=== PATIENT | female | born 1965 | race American Indian/Alaskan Native ===

== ENCOUNTER 2019-03-25 15:56 | Emergency (ER) | payer MEDICARE, OTHER ==
[2019-03-25] MEDS ORDERED: Sodium Chloride 0.9% 10 ML Syringe FLUSH PRN (16:23)
[2019-03-25] MEDS ORDERED: Sodium Chloride 0.9% 1,000 ML IV ONE (16:23)
[2019-03-25] MEDS ORDERED: Ketorolac 30 MG/ML SDV IVPUSH ONE (16:23)
[2019-03-25 16:57] LABS: ANION GAP 15.9
[2019-03-25] MEDS ORDERED: Butorphanol 2 MG/ML SDV IVPUSH ONE (17:26)
--- NOTE | 2019-03-25 17:52 | EDM.PDOC ---
Scribed by Becca Peña 03/25/19 [id number] for Maribel Calles NP ED HPI GENERAL MEDICAL PROBLEM - General Chief Complaint: Head Injury Stated Complaint: MIGRAINE +7 DAYS, BONE PAIN IN NECK Time Seen by Provider: 03/25/19 16:10 Source of Information: Reports: Patient, RN, RN Notes Reviewed History Limitations: Reports: No Limitations - History of Present Illness INITIAL COMMENTS - FREE TEXT/NARRATIVE: Patient presents to ER with complaint of severe headache x7 days and neck pain. 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 States she has light sensitivity. States she uses Excedrin migraine and it has not been helping. Denies recent trauma or injury. Patient admits to seizure in December. History of [facility] with lobectomy. Onset: Gradual Duration: Getting Worse Location: Reports: Head Quality: Reports: Ache Severity: Moderate Improves with: Reports: None Worsens with: Reports: None Associated Symptoms: Reports: No Other Symptoms Neck Pain Score (Numeric/FACES): 6 - Related Data Allergies Allergy/AdvReac Type Severity Reaction Status Date / Time No Known Allergies Allergy Verified 03/25/19 16:02 Home Meds: Home Meds Acetaminophen [Tylenol Extra Strength] 1,000 mg PO Q8H PRN 03/25/19 [History] Acetaminophen/Caffeine [Excedrin Tension Headache Cplt] 1 each PO PRN 03/25/19 [ History] Butalb/Acetaminophen/Caffeine [Lryghu-Fknluwtt-Rkgy 50-325-40] 1 tab PRN [History] clonazePAM [Clonazepam] 3 mg PO DAILY 03/25/19 [History] ED ROS GENERAL - Review of Systems Review Of Systems: ROS reveals no pertinent complaints other than HPI. - Physical Exam Exam: See Below Exam Limited By: No Limitations General Appearance: Alert, WD/WN, No Apparent Distress Eye Exam: Bilateral Eye: EOMI, Normal Inspection, PERRL Ears: Normal External Exam, Normal Canal, Hearing Grossly Normal, Normal TMs Nose: Normal Inspection, Normal Mucosa, No Blood Throat/Mouth: Normal Inspection, Normal Lips, Normal Teeth, Normal Gums, Normal Oropharynx, Normal Voice, No Airway Compromise Head Exam: Atraumatic, Normocephalic Neck: Tender Lateral (midline) Respiratory/Chest: Crackles (throughout) Cardiovascular: Normal Peripheral Pulses, Regular Rate, Rhythm, No Edema, No Gallop, No JVD, No Murmur, No Rub GI/Abdominal: Normal Bowel Sounds, Soft, Non-Tender, No Organomegaly, No Distention, No Abnormal Bruit, No Mass (Female) Exam: Deferred Rectal (Female) Exam: Deferred Neuro Exam (Abbreviated): Alert, Oriented, CN II-XII Intact, Normal Cognition, Normal Gait, Normal Reflexes, No Motor/Sensory Deficits Back Exam: Other (decreaed range of motion) Extremities: Normal Inspection, Normal Range of Motion, Non-Tender, No Pedal Edema, Normal Capillary Refill Psychiatric: Anxious Skin Exam: Warm, Dry, Intact, Normal Color, No Rash Course - Vital Signs Last Recorded V/S: Last Vital Signs Temp 97.1 F 03/25/19 16:05 Pulse 99 03/25/19 16:05 Resp 16 03/25/19 16:05 BP 145/92 H 03/25/19 16:05 Pulse Ox 99 03/25/19 16:05 - Orders/Labs/Meds Orders: Active Orders 24 hr Category Date Time Status Peripheral IV Care [RC] . DIRECTED Care 03/25/19 16:24 Active Cervical Spine wo Cont [CT] Urgent Exams 03/25/19 16:23 Taken Head wo Cont [CT] Urgent Exams 03/25/19 16:23 Taken Orphenadrine [Norflex] Med 03/25/19 16:30 Active 60 mg IM Q12H Sodium Chloride 0.9% [Saline Flush] Med 03/25/19 16:23 Active 10 ml FLUSH ASDIRECTED PRN Peripheral IV Insertion Adult [OM.PC] Stat Oth 03/25/19 16:22 Ordered Medication Orders Orphenadrine Citrate (Norflex) 60 mg IM Q12H NAEL Last Admin: 03/25/19 16:54 Dose: 60 mg Sodium Chloride (Saline Flush) 10 ml FLUSH ASDIRECTED PRN PRN Reason: Keep Vein Open Last Admin: 03/25/19 16:54 Dose: 10 ml Labs: Laboratory Tests 03/25/19 03/25/19 03/25/19 Range/Units 16:32 16:32 16:32 WBC 5.8 (5.0-10.0) 10^3/uL RBC 4.72 (4.2-5.4) 10^6/uL Hgb 15.0 (12.0-16.0) g/dL Hct 46.0 (37.0-47.0) % MCV 97.5 (80-100) fL MCH 31.8 (27.0-34.0) pg MCHC 32.6 L (33.0-35.0) g/dL Plt Count 290 (150-450) 10^3/uL Neut % (Auto) 44.4 (42.2-75.2) % Lymph % (Auto) 41.3 (20.5-50.1) % [place] % (Auto) 8.7 H (2-8) % Eos % (Auto) 4.6 H (1.0-3.0) % Baso % (Auto) 1.0 (0.0-1.0) % PT 10.0 (9.0-12.0) SEC INR 1.0 (0.9-1.2) Sodium 142 (135-145) mmol/L Potassium 3.9 (3.6-5.0) mmol/L Chloride 104 (101-111) mmol/L Carbon Dioxide 26.0 (21.0-31.0) mmol/L Anion Gap 15.9 BUN 24 H (7-18) mg/dL Creatinine 1.0 (0.6-1.3) mg/dL Est Cr Clr Drug Dosing 54.89 mL/min Estimated GFR (MDRD) 58 BUN/Creatinine Ratio 24.00 Glucose 104 (74-105) mg/dL Calcium 9.9 (8.4-10.2) mg/dl Total Bilirubin 0.4 (0.2-1.0) mg/dL AST 21 (10-42) IU/L ALT 14 (10-60) IU/L Alkaline Phosphatase 95 (42-121) IU/L Total Protein 7.9 (6.7-8.2) g/dl Albumin 4.3 (3.2-5.5) g/dl Globulin 3.6 Albumin/Globulin Ratio 1.19 Meds: Medications Generic Name Dose Route Start Last Admin Trade Name Freq PRN Reason Stop Dose Admin Orphenadrine Citrate 60 mg 03/25/19 16:30 03/25/19 16:54 Norflex IM 60 mg Q12H NAEL Administration Sodium Chloride 10 ml 03/25/19 16:23 03/25/19 16:54 Saline Flush FLUSH 10 ml ASDIRECTED PRN Administration Keep Vein Open Discontinued Medications Generic Name Dose Route Start Last Admin Trade Name Andrey PRN Reason Stop Dose Admin Butorphanol Tartrate 2 mg 03/25/19 17:26 03/25/19 17:32 Stadol IVPUSH 03/25/19 17:27 2 mg ONETIME ONE Administration Sodium Chloride 1,000 mls @ 999 mls/hr 03/25/19 16:23 03/25/19 16:54 Normal Saline IV 03/25/19 17:23 999 mls/hr .BOLUS ONE Administration Ketorolac Tromethamine 30 mg 03/25/19 16:23 03/25/19 16:54 Toradol IVPUSH 03/25/19 16:24 30 mg ONETIME ONE Administration - Radiology Interpretation Free Text/Narrative:: Head CT wo contrast: FINDINGS: Brain: No acute intracranial hemorrhage. Sharma-white matter differentiation is normal. Ventricles: No ventriculomegaly. Bones/joints: No acute fracture. Sinuses: Visualized portions of the paranasal sinuses are clear. Mastoid air cells: No mastoid effusion. Soft tissues: Unremarkable. IMPRESSION: No acute intracranial abnormality. Thank you for allowing us to participate in the care of your patient. Dictated and Authenticated by: Liset Potter MD 03/25/2019 5:04 PM Central Time ([place] & [place]) C Spine CT wo contrast: FINDINGS: Vertebrae: 2 mm anterolisthesis of C2 on C3. Mild smooth reversal of the normal cervical lordosis. C5-C7 prominent anterior osteophytes. No acute fracture. Discs/Spinal canal/Neural foramina: Mild to moderate multilevel degenerative disc disease. No significant spinal canal stenosis. Moderate left C5-C6, moderate left C6-C7, moderate right C3-C4, moderate right C4-C5, moderate right C5-C6, and mild to moderate right C6-C7 neuroforaminal stenosis secondary to uncovertebral joint disease and facet arthropathy at these levels. Soft tissues: Unremarkable. Lungs: Mild biapical pleuroparenchymal scarring. Vasculature: Atherosclerotic calcifications within the carotid bulbs bilaterally. IMPRESSION: 1. No acute fracture. 2. Mild to moderate multilevel degenerative disc disease. 3. 2 mm anterolisthesis of C2 on C3, most likely degenerative, although ligamentous injury is not excluded. Thank you for allowing us to participate in the care of your patient. Dictated and Authenticated by: Liset Potter MD 03/25/2019 5:23 PM Central Time ([place] & [place]) Departure - Departure Time of Disposition: 17:50 Disposition: Home, Self-Care 01 Condition: Fair Clinical Impression: Degenerative disc disease Qualifiers: Spinal region: unspecified cervical region Qualified Code(s): M50.30 - Other cervical disc degeneration, unspecified cervical region Migraine headache Qualifiers: Migraine type: other Status migrainosus presence: without status migrainosus Intractability: intractable Qualified Code(s): G43.819 - Other migraine, intractable, without status migrainosus - Discharge Information *PRESCRIPTION DRUG MONITORING PROGRAM REVIEWED*: No *COPY OF PRESCRIPTION DRUG MONITORING REPORT IN PATIENT FILIPE: No Instructions: Migraine Headache, [id number] Forms: ED Department Discharge Additional Instructions: RX: Flexeril Drink plenty of water May use Tylenol and/or Ibuprofen as directed for headache Follow up with your primary care facility May use heat and/or ice to the neck as tolerated - My Orders Last 24 Hours: My Active Orders 03/25/19 16:22 Peripheral IV Insertion Adult [OM.PC] Stat 03/25/19 16:23 Cervical Spine wo Cont [CT] Urgent Head wo Cont [CT] Urgent Sodium Chloride 0.9% [Saline Flush] 10 ml FLUSH ASDIRECTED PRN 03/25/19 16:24 Peripheral IV Care [RC] . DIRECTED 03/25/19 16:30 Orphenadrine [Norflex] 60 mg IM Q12H - Assessment/Plan Last 24 Hours: My Active Orders 03/25/19 16:22 Peripheral IV Insertion Adult [OM.PC] Stat 03/25/19 16:23 Cervical Spine wo Cont [CT] Urgent Head wo Cont [CT] Urgent Sodium Chloride 0.9% [Saline Flush] 10 ml FLUSH ASDIRECTED PRN 03/25/19 16:24 Peripheral IV Care [RC] . DIRECTED 03/25/19 16:30 Orphenadrine [Norflex] 60 mg IM Q12H I have read and agree with the documentation that has been completed regarding this visit. By signing this record, I attest that the documentation was completed in my physical presence and is an accurate record of the encounter.
== END 2019-03-25 18:00 | disposition home or self-care (01) ==
LOC: DL.ED 15:56
DX: G43.819 Other migraine, intractable, without status migrainosus (principal); M50.30 Other cervical disc degeneration, unspecified cervical region; Z79.899 Other long term (current) drug therapy
CPT/HCPCS: 36415; 70450; 72125; 80053; 85025; 85610; 96361; 96372; 96374; 96375; 99284-25; J0595; J1885; J2360; J7030

== ENCOUNTER 2019-09-02 14:56 | Emergency (ER) | payer MEDICARE, OTHER ==
--- NOTE | 2019-09-02 15:20 | EDM.PDOC ---
"<Hansel Pacheco - Last Filed: 09/02/19 17:29> ED HPI GENERAL MEDICAL PROBLEM - General Chief Complaint: Abdominal Pain Stated Complaint: ABD PAIN LEFT SIDE Time Seen by Provider: 09/02/19 15:20 Source of Information: Reports: Patient, RN, RN Notes Reviewed History Limitations: Reports: No Limitations - History of Present Illness INITIAL COMMENTS - FREE TEXT/NARRATIVE: Patient presents to the ER via private vehicle for LLQ pain. Pain is radiating to her pelvic area, left flank and back. She has had multiple abdominal surgeries in the past and she believes it is a cyst on her ovary since it feels the same when she had a cyst on her right ovary. She complains of nausea and bloating. Pain started 7-8 weeks ago and has been gradually getting worse. She could not rate the pain on a scale from 0-10 but states it can drop her to her knees at times. She reports having normal bowel movements once every day, has had one today as well. No problems voiding urine and no foul smell. 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 (Has not helped with the pain) Left Lower Pelvic Pain Score (Numeric/FACES): 8 - Related Data Allergies Allergy/AdvReac Type Severity Reaction Status Date / Time No Known Allergies Allergy Verified 09/02/19 15:01 Home Meds: Home Meds Acetaminophen [Tylenol Extra Strength] 1,000 mg PO Q8H PRN 03/25/19 [History] clonazePAM [Clonazepam] 3 mg PO DAILY 03/25/19 [History] Mirtazapine 45 mg PO DAILY 09/02/19 [History] Past Medical History Cardiovascular History: Reports: None Respiratory History: Reports: Other (See Below) Other Respiratory History: valley fever Gastrointestinal History: Reports: None Genitourinary History: Reports: None [employer]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 Musculoskeletal History: Reports: Arthritis, Neck Pain, Chronic, Other (See Below) Other Musculoskeletal History: spinal stenosis Neurological History: Reports: Migraines Psychiatric History: Reports: None Endocrine/Metabolic History: Reports: None Hematologic History: Reports: None Immunologic History: Reports: None Oncologic (Cancer) History: Reports: None Dermatologic History: Reports: None - Infectious Disease History Infectious Disease History: Reports: None - Past Surgical History Head Surgeries/Procedures: Reports: None HEENT Surgical History: Reports: Tonsillectomy Respiratory Surgical History: Reports: Lung Resection Female Surgical History: Reports: Oophorectomy Social & Family History - Family History Family Medical History: Noncontributory - Tobacco Use Smoking Status *Q: Current Every Day Smoker Years of Tobacco use: 41 Packs/Tins Daily: 1 - Caffeine Use Caffeine Use: Reports: Coffee - Recreational Drug Use Recreational Drug Use: Yes Drug Use in Last 12 Months: Yes Recreational Drug Type: Reports: Marijuana/Hashish Recreational Drug Use Frequency: Weekly ED ROS GENERAL - Review of Systems Review Of Systems: Comprehensive ROS is negative, except as noted in HPI. ED EXAM, GI/ABD - Physical Exam Exam: See Below Exam Limited By: No Limitations General Appearance: Mild Distress Eyes: Bilateral: Normal Appearance, EOMI Ears: Normal External Exam, Normal Canal, Hearing Grossly Normal, Normal TMs Nose: Normal Inspection, Normal Mucosa, No Blood Throat/Mouth: Normal Inspection, Normal Lips, Normal Teeth, Normal Gums, Normal Oropharynx, Normal Voice, No Airway Compromise Head: Atraumatic, Normocephalic Neck: Normal Inspection, Supple, Non-Tender, Full Range of Motion Respiratory/Chest: No Respiratory Distress, Lungs Clear, Normal Breath Sounds, No Accessory Muscle Use, Chest Non-Tender Cardiovascular: Normal Peripheral Pulses, Regular Rate, Rhythm, No Edema, No Gallop, No JVD, No Murmur, No Rub GI/Abdominal Exam: Normal Bowel Sounds, Soft, Guarding, Rigid, Tender (LLQ) (Female) Exam: Deferred Rectal (Female) Exam: Deferred Back Exam: CVA Tenderness (L) Extremities: Normal Inspection, Normal Range of Motion, Non-Tender, Normal Capillary Refill, No Pedal Edema Neurological: Alert, Oriented, CN II-XII Intact, Normal Cognition, Normal Gait, Normal Reflexes, No Motor/Sensory Deficits Psychiatric: Normal Affect, Normal Mood Skin Exam: Warm, Dry, Intact, Normal Color, No Rash Lymphatic: No Adenopathy Course - Vital Signs Last Recorded V/S: Last Vital Signs Temp 99.2 F 02/03/20 15:08 Pulse 96 09/02/19 15:08 Resp 16 09/02/19 15:08 BP 150/93 H 09/02/19 15:08 Pulse Ox 96 09/02/19 15:08 - Orders/Labs/Meds Orders: Active Orders 24 hr Category Date Time Status Peripheral IV Care [RC] . DIRECTED Care 09/02/19 15:25 Active Abdomen Pelvis w Cont [CT] Stat Exams 09/02/19 16:18 Taken CULTURE URINE [RM] Stat Lab 09/02/19 15:05 Received Sodium Chloride 0.9% [Saline Flush] Med 09/02/19 15:25 Active 10 ml FLUSH ASDIRECTED PRN cefTRIAXone [Rocephin] 2,000 mg Med 09/02/19 17:19 Active Sodium Chloride 0.9% [Normal Saline] 100 ml IV ONETIME Peripheral IV Insertion Adult [OM.PC] Stat Oth 09/02/19 15:25 Ordered Medication Orders Ceftriaxone Sodium 2,000 mg/ (Sodium Chloride) 100 mls @ 200 mls/hr IV ONETIME ONE Stop: 09/02/19 17:48 Last Admin: 09/02/19 17:28 Dose: 200 mls/hr Sodium Chloride (Saline Flush) 10 ml FLUSH ASDIRECTED PRN PRN Reason: Keep Vein Open Last Admin: 09/02/19 15:48 Dose: 10 ml Labs: Laboratory Tests 09/02/19 09/02/19 09/02/19 Range/Units 15:05 15:05 15:38 WBC 9.0 (5.0-10.0) 10^3/uL RBC 4.27 (4.2-5.4) 10^6/uL Hgb 13.8 (12.0-16.0) g/dL Hct 41.1 (37.0-47.0) % MCV 96.3 (80-100) fL MCH 32.3 (27.0-34.0) pg MCHC 33.6 (33.0-35.0) g/dL Plt Count 266 (150-450) 10^3/uL Neut % (Auto) 51.4 (42.2-75.2) % Lymph % (Auto) 35.7 (20.5-50.1) % [place] % (Auto) 7.0 (2-8) % Eos % (Auto) 5.5 H (1.0-3.0) % Baso % (Auto) 0.4 (0.0-1.0) % Sodium (135-145) mmol/L Potassium (3.6-5.0) mmol/L Chloride (101-111) mmol/L Carbon Dioxide (21.0-31.0) mmol/L Anion Gap BUN (7-18) mg/dL Creatinine (0.6-1.3) mg/dL Est Cr Clr Drug Dosing mL/min Estimated GFR (MDRD) BUN/Creatinine Ratio Glucose (74-105) mg/dL Lactic Acid (0.5-2.0) mmol/L Calcium (8.4-10.2) mg/dl Total Bilirubin (0.2-1.0) mg/dL AST (10-42) IU/L ALT (10-60) IU/L Alkaline Phosphatase (42-121) IU/L Total Protein (6.7-8.2) g/dl Albumin (3.2-5.5) g/dl Globulin Albumin/Globulin Ratio Amylase (28-100) U/L Lipase (22-51) U/L Urine Color Yellow (YELLOW) Urine Appearance Slightly cloudy (CLEAR) Urine pH 6.0 (5.0-9.0) Ur Specific [place] >= 1.030 (1.005-1.030) Urine Protein Negative (NEGATIVE) Urine Glucose (UA) Negative (NEGATIVE) Urine Ketones Negative (NEGATIVE) Urine Occult Blood Negative (NEGATIVE) Urine Nitrite Positive H (NEGATIVE) Urine Bilirubin Negative (NEGATIVE) Urine Urobilinogen 0.2 (0.2-1.0) mg/dL Ur Leukocyte Esterase Negative (NEGATIVE) Urine RBC 0-5 /HPF Urine WBC 0-5 (0-5/HPF) /HPF Ur Epithelial Cells Rare (NOT SEEN) /HPF Urine Bacteria Many H (0-FEW/HPF) /HPF Urine HCG, Qual Negative 09/02/19 09/02/19 Range/Units 15:38 15:38 WBC (5.0-10.0) 10^3/uL RBC (4.2-5.4) 10^6/uL Hgb (12.0-16.0) g/dL Hct (37.0-47.0) % MCV (80-100) fL MCH (27.0-34.0) pg MCHC (33.0-35.0) g/dL Plt Count (150-450) 10^3/uL Neut % (Auto) (42.2-75.2) % Lymph % (Auto) (20.5-50.1) % [place] % (Auto) (2-8) % Eos % (Auto) (1.0-3.0) % Baso % (Auto) (0.0-1.0) % Sodium 140 (135-145) mmol/L Potassium 4.0 (3.6-5.0) mmol/L Chloride 104 (101-111) mmol/L Carbon Dioxide 26.0 (21.0-31.0) mmol/L Anion Gap 14.0 BUN 18 (7-18) mg/dL Creatinine 0.9 (0.6-1.3) mg/dL Est Cr Clr Drug Dosing 60.99 mL/min Estimated GFR (MDRD) > 60 BUN/Creatinine Ratio 20.00 Glucose 84 (74-105) mg/dL Lactic Acid 0.9 (0.5-2.0) mmol/L Calcium 9.8 (8.4-10.2) mg/dl Total Bilirubin 0.4 (0.2-1.0) mg/dL AST 24 (10-42) IU/L ALT 18 (10-60) IU/L Alkaline Phosphatase 87 (42-121) IU/L Total Protein 7.9 (6.7-8.2) g/dl Albumin 4.7 (3.2-5.5) g/dl Globulin 3.2 Albumin/Globulin Ratio 1.47 Amylase 79 (28-100) U/L Lipase 46 (22-51) U/L Urine Color (YELLOW) Urine Appearance (CLEAR) Urine pH (5.0-9.0) Ur Specific [place] (1.005-1.030) Urine Protein (NEGATIVE) Urine Glucose (UA) (NEGATIVE) Urine Ketones (NEGATIVE) Urine Occult Blood (NEGATIVE) Urine Nitrite (NEGATIVE) Urine Bilirubin (NEGATIVE) Urine Urobilinogen (0.2-1.0) mg/dL Ur Leukocyte Esterase (NEGATIVE) Urine RBC /HPF Urine WBC (0-5/HPF) /HPF Ur Epithelial Cells (NOT SEEN) /HPF Urine Bacteria (0-FEW/HPF) /HPF Urine HCG, Qual Meds: Medications Generic Name Dose Route Start Last Admin Trade Name Andrey PRN Reason Stop Dose Admin Ceftriaxone Sodium 2,000 mg/ 100 mls @ 200 mls/hr 09/02/19 17:19 09/02/19 17: 28 Sodium Chloride IV 09/02/19 17:48 200 mls/hr ONETIME ONE Administration Sodium Chloride 10 ml 09/02/19 15:25 09/02/19 15:48 Saline Flush FLUSH 10 ml ASDIRECTED PRN Administration Keep Vein Open Discontinued Medications Generic Name Dose Route Start Last Admin Trade Name Andrey PRN Reason Stop Dose Admin Ceftriaxone Sodium Confirm 09/02/19 17:22 Rocephin Administered 09/02/19 17:23 Dose 2,000 mg .ROUTE .STK-MED ONE Ceftriaxone Sodium Confirm 09/02/19 17:23 Rocephin Administered 09/02/19 17:24 Dose 1,000 mg .ROUTE .STK-MED ONE Hydromorphone HCl 0.5 mg 09/02/19 15:26 09/02/19 15:53 Dilaudid IVPUSH 09/02/19 15:27 0.5 mg ONETIME ONE Administration Sodium Chloride 1,000 mls @ 999 mls/hr 09/02/19 15:26 09/02/19 15:48 Normal Saline IV 09/02/19 16:26 999 mls/hr .BOLUS ONE Administration Iopamidol 100 ml 09/02/19 16:18 09/02/19 16:48 Isovue-300 (61%) IVPUSH 09/02/19 16:19 75 ml ONETIME ONE Administration Ketorolac Tromethamine 30 mg 09/02/19 17:25 Toradol IVPUSH 09/02/19 17:26 ONETIME ONE Lactulose 20 gm 09/02/19 17:20 09/02/19 17:28 Cephulac PO 09/02/19 17:21 20 gm ONETIME ONE Administration Ondansetron HCl 4 mg 09/02/19 15:26 09/02/19 15:48 Zofran IV 09/02/19 15:27 4 mg ONETIME ONE Administration Departure - Departure Time of Disposition: 18:00 Disposition: Home, Self-Care 01 Condition: Good Clinical Impression: Pyelonephritis Constipation Qualifiers: Constipation type: other constipation type Qualified Code(s): K59.09 - Other constipation - Discharge Information *PRESCRIPTION DRUG MONITORING PROGRAM REVIEWED*: Not Applicable *COPY OF PRESCRIPTION DRUG MONITORING REPORT IN PATIENT FILIPE: Not Applicable Instructions: Pyelonephritis, Adult, [id number], Constipation, Adult Forms: ED Department Discharge Additional Instructions: Rx: Cipro 500 mg Drink plenty of fluids, high fiber diet. May use OTC stool softener/laxative. Follow up in clinic in 5-7 days for repeat urine test. Sepsis Event Note - Evaluation Sepsis Screening Result: No Definite Risk - Focused Exam Vital Signs: Vital Signs Temp Pulse Resp BP Pulse Ox 09/02/19 15:08 99.2 F 96 16 150/93 H 96 Date Exam was Performed: 09/02/19 Time Exam was Performed: 17:29 - My Orders Last 24 Hours: My Active Orders 09/02/19 15:05 CULTURE URINE [RM] Stat 09/02/19 15:25 Peripheral IV Care [RC] . DIRECTED Sodium Chloride 0.9% [Saline Flush] 10 ml FLUSH ASDIRECTED PRN Peripheral IV Insertion Adult [OM.PC] Stat 09/02/19 16:18 Abdomen Pelvis w Cont [CT] Stat 09/02/19 17:19 cefTRIAXone [Rocephin] 2,000 mg Sodium Chloride 0.9% [Normal Saline] 100 ml IV ONETIME - Assessment/Plan Last 24 Hours: My Active Orders 09/02/19 15:05 CULTURE URINE [RM] Stat 09/02/19 15:25 Peripheral IV Care [RC] . DIRECTED Sodium Chloride 0.9% [Saline Flush] 10 ml FLUSH ASDIRECTED PRN Peripheral IV Insertion Adult [OM.PC] Stat 09/02/19 16:18 Abdomen Pelvis w Cont [CT] Stat 09/02/19 17:19 cefTRIAXone [Rocephin] 2,000 mg Sodium Chloride 0.9% [Normal Saline] 100 ml IV ONETIME <Chaz Houstno - Last Filed: 09/02/19 17:31> ED EXAM, GI/ABD - Physical Exam Text/Narrative:: No changes to exam as documented by the student. Course - Radiology Interpretation Free Text/Narrative:: [facility] [place] [facility] Final Radiology Report Call: [phone] assistance Online chat: [email or web address] Name: EMMANUEL AGUIAR Age: 53Years F Date: 09/02/2019 SSN: -- : [id number] Study: CT ABDOMEN/PELVIS W Requesting Physician: CHAZ HOUSTNO Images: [id number] Addl Studies: Provided Clinical History: Contrast: With Contrast Medium: Isovue Contrast Amount: 75 mL Contrast Method: IV Page 1 of 2 PROCEDURE INFORMATION: Exam: CT Abdomen And Pelvis With Contrast Exam date and time: 09/02/2019 4:48 PM Age: 53 years old Clinical indication: Abdominal pain; Other: Left flank TECHNIQUE: Imaging protocol: Computed tomography of the abdomen and pelvis with intravenous contrast. Radiation optimization: All CT scans at this facility use at least one of these dose optimization techniques: automated exposure control; mA and/or kV adjustment per patient size (includes targeted exams where dose is matched to clinical indication); or iterative reconstruction. Contrast material: ISOVUE; Contrast volume: 75 ml; Contrast route: IV; COMPARISON: CT ABDOMEN/PELVIS 08/19/2010 3:26 PM FINDINGS: Lungs: Scarring and atelectasis at the lung bases without acute findings. Liver: Stable 1.7 cm hypodense lesion in the left hepatic lobe on image 35 series 2 most likely represents a hepatic cyst or small hemangioma. No concerning liver lesions. No acute liver pathology. Gallbladder and bile ducts: The gallbladder is contracted. There is no evidence of biliary ductal dilation. Pancreas: Normal. No ductal dilation. Spleen: Normal. No splenomegaly. Adrenals: Normal. No mass. Kidneys and ureters: Normal. No hydronephrosis. Stomach and bowel: There is no evidence of intestinal perforation or obstruction. There is moderately excessive colonic stool content. EMMANUEL AGUIAR | Final Radiology Report CONFIDENTIALITY STATEMENT This report is intended only for use by the referring physician, and only in accordance with law. If you received this in error, call [phone]. Page 2 of 2 Appendix: No evidence of appendicitis. Intraperitoneal space: Unremarkable. No free air. No significant fluid collection. Vasculature: The vasculature demonstrates diffuse mild atherosclerotic calcification. Lymph nodes: Unremarkable. No enlarged lymph nodes. Bladder: Unremarkable as visualized. Reproductive: There has been a hysterectomy. Bones/joints: No acute abnormality or aggressive osseous lesion. Soft tissues: Calcified injection granulomas are noted in the subcutaneous tissues of the buttocks. IMPRESSION: Negative for acute abdominopelvic pathology. Thank you for allowing us to participate in the care of your patient. Dictated and Authenticated by: Ron Quiroz MD 09/02/2019 5:13 PM Central Time ([place] & [place]) - Re-Assessments/Exams Free Text/Narrative Re-Assessment/Exam: 09/02/19 17:30 I personally performed or re-performed the physical examination and medical decision making. I have verified all student documentation or findings, including history, physical exam and/or medical decision making. Sepsis Event Note - Focused Exam Date Exam was Performed: 09/02/19 Time Exam was Performed: 17:30"
[2019-09-02] MEDS ORDERED: Sodium Chloride 0.9% 10 ML Syringe FLUSH PRN (15:25)
[2019-09-02] MEDS ORDERED: HYDROmorphone 0.5 MG/0.5 ML Syringe IVPUSH ONE (15:26)
[2019-09-02] MEDS ORDERED: Sodium Chloride 0.9% 1,000 ML IV ONE (15:26)
[2019-09-02] MEDS ORDERED: Ondansetron 4 MG/2 ML SDV IV ONE (15:26)
[2019-09-02 16:07] LABS: CHLORIDE,CL 104 mmol/L (101-111); SODIUM,NA 140 mmol/L (135-145)
[2019-09-02] MEDS ORDERED: Iopamidol 612 MG/ML 100 ML Bottle IVPUSH ONE (16:18)
[2019-09-02] MEDS ORDERED: Lactulose Soln 10 GM/15 ML 30 ML UD Cup PO ONE (17:20)
[2019-09-02] MEDS ORDERED: cefTRIAXone 500 MG Vial ONE ×2 (17:22→17:23)
[2019-09-02] MEDS ORDERED: Ketorolac 30 MG/ML SDV IVPUSH ONE (17:25)
== END 2019-09-02 18:08 | disposition home or self-care (01) ==
LOC: DL.ED 14:56
DX: N12 Tubulo-interstitial nephritis, not specified as acute or chronic (principal); K59.09 Other constipation; F17.210 Nicotine dependence, cigarettes, uncomplicated
CPT/HCPCS: 36415; 74177; 80053; 81001; 81025; 82150; 83605; 83690; 85025; 87086; 87088; 87186; 96361; 96365; 96375; 99284; A9270; J0696; J1170; J1885; J2405; J7030; J7050; Q9967